=== PATIENT | female | born 1980 | race Caucasian/White ===

== ENCOUNTER 2017-12-22 11:10 | Emergency (ER) | payer OTHER ==
[~2017-12-22] VITALS: Ht 162.6 cm; Wt 99.8 kg
== END 2017-12-22 17:57 | disposition home or self-care (01) ==
LOC: ER 11:10
DX: R20.0 Anesthesia of skin (principal)

== ENCOUNTER 2018-07-14 05:36 | Emergency (ER) | payer OTHER ==
[~2018-07-14] VITALS: Ht 165.1 cm; Wt 97.5 kg
[2018-07-14] MEDS ORDERED: CELECOXIB100 MG PO (10:47)
== END 2018-07-14 11:21 ==
LOC: ER 05:36
DX: R20.2 Paresthesia of skin (principal); R07.89 Other chest pain

== ENCOUNTER 2018-11-16 08:00 | Outpatient (CLI) | payer OTHER ==
[~2018-11-16 08:00] MED LIST: CELECOXIB100 MG PO
== END 2018-11-16 08:11 | disposition home or self-care (01) ==
LOC: RAD 08:00 → SONOGRAMA 08:15 → MAMO-SONO 08:45
DX: R10.0 Acute abdomen (principal); K80.10 Calculus of gallbladder with chronic cholecystitis without obstruction; R07.89 Other chest pain; Z77.22 Contact with and (suspected) exposure to environmental tobacco smoke (acute) (chronic)

== ENCOUNTER 2019-06-12 09:37 | Outpatient (CLI) | payer OTHER | END 2019-06-12 09:47 | disposition home or self-care (01) | LOC: RAD 09:37 | DX: R42 Dizziness and giddiness (principal); R00.2 Palpitations; R30.0 Dysuria; E66.8 Other obesity; Z11.3 Encounter for screening for infections with a predominantly sexual mode of transmission; Z13.220 Encounter for screening for lipoid disorders; E07.89 Other specified disorders of thyroid ==

== ENCOUNTER → 2021-04-28 | Outpatient (CLI) | payer OTHER | END | disposition home or self-care (01) | LOC: MAMO-SONO 10:15 | PROVIDERS: ATTEND General Practice | DX: N64.89 Other specified disorders of breast (principal); Z12.31 Encounter for screening mammogram for malignant neoplasm of breast ==

== ENCOUNTER 2021-05-20 07:58 | Outpatient (CLI) | payer OTHER | END 2021-05-20 08:13 | disposition home or self-care (01) | LOC: MRI 07:58 | PROVIDERS: ATTEND Specialist | DX: E04.1 Nontoxic single thyroid nodule (principal) ==

== ENCOUNTER 2021-05-27 15:10 | Outpatient (CLI) | payer OTHER | END 2021-05-27 15:20 | disposition home or self-care (01) | LOC: RAD 15:10 | PROVIDERS: ATTEND Specialist | DX: M77.11 Lateral epicondylitis, right elbow (principal); M25.521 Pain in right elbow ==

== ENCOUNTER 2022-07-06 10:28 | Emergency (ER) | payer OTHER ==
[~2022-07-06] VITALS: Ht 165.1 cm; Wt 105.2 kg
[~2022-07-06 10:28] MED LIST changes: -DICLOFENAC SODI75 MG PO
[2022-07-07] MEDS ORDERED: DICLOFENAC SODI75 MG PO (18:55)
== END 2022-07-06 18:35 | disposition home or self-care (01) ==
LOC: ER 10:28
DX: N83.202 Unspecified ovarian cyst, left side (principal); N83.291 Other ovarian cyst, right side

== ENCOUNTER → 2022-07-06 | Outpatient (CLI) | payer OTHER ==
[~2022-07-06] MED LIST changes: +DICLOFENAC SODI75 MG PO
== END | disposition home or self-care (01) ==
LOC: SONOGRAMA 08:06
PROVIDERS: ATTEND Specialist
DX: U09.9 Post COVID-19 condition, unspecified (principal); R10.9 Unspecified abdominal pain; L29.0 Pruritus ani; E04.1 Nontoxic single thyroid nodule

== ENCOUNTER 2022-07-07 15:41 | Emergency (ER) | payer OTHER ==
[~2022-07-07] VITALS: Ht 165.1 cm; Wt 105.2 kg
[2022-07-07] MEDS ORDERED: DICLOFENAC SODI75 MG PO (18:55)
== END 2022-07-07 20:20 | disposition home or self-care (01) ==
LOC: ER 15:41
DX: N83.202 Unspecified ovarian cyst, left side (principal); Z20.822 Contact with and (suspected) exposure to COVID-19

== ENCOUNTER 2023-03-25 13:37 | Outpatient (CLI) | payer OTHER ==
[~2023-03-25 13:37] MED LIST changes: +DICLOFENAC SODI75 MG PO
== END 2023-03-25 13:51 | disposition home or self-care (01) ==
LOC: RAD 13:37
PROVIDERS: ATTEND Specialist
DX: R10.9 Unspecified abdominal pain (principal); Z12.31 Encounter for screening mammogram for malignant neoplasm of breast; E78.5 Hyperlipidemia, unspecified; E66.9 Obesity, unspecified; M62.838 Other muscle spasm

== ENCOUNTER 2023-03-30 10:11 | Outpatient (CLI) | payer OTHER | END 2023-03-30 10:36 | disposition home or self-care (01) | LOC: RAD 10:11 | PROVIDERS: ATTEND Specialist | DX: R10.9 Unspecified abdominal pain (principal); Z12.31 Encounter for screening mammogram for malignant neoplasm of breast; E78.5 Hyperlipidemia, unspecified; E66.9 Obesity, unspecified ==

== ENCOUNTER 2023-04-09 13:32 | Emergency (ER) | payer OTHER ==
[~2023-04-09] VITALS: Ht 165.1 cm; Wt 100.7 kg
== END 2023-04-09 14:51 | disposition home or self-care (01) ==
LOC: ER 13:32
DX: R53.81 Other malaise (principal); I10 Essential (primary) hypertension; F41.9 Anxiety disorder, unspecified

== ENCOUNTER 2023-04-12 21:36 | Emergency (ER) | payer OTHER ==
[~2023-04-12] VITALS: Ht 162.6 cm; Wt 100.7 kg
[2023-04-13] MEDS ORDERED: KETO10TA2 PO (05:17)
[2023-04-13] MEDS ORDERED: NORFLEX100MG PO (05:17)
== END 2023-04-13 05:23 ==
LOC: ER 21:36
DX: R51.9 Headache, unspecified (principal); M62.838 Other muscle spasm; R42 Dizziness and giddiness

== ENCOUNTER 2024-03-04 21:57 | Emergency (ER) | payer OTHER ==
[~2024-03-04] VITALS: Ht 165.1 cm; Wt 99.8 kg
[~2024-03-04 21:57] MED LIST changes: +KETO10TA2 PO; +NORFLEX100MG PO
[2024-03-04] MEDS ORDERED: TETANUS & DIPHTHERIA TOX,ADULT 0.5 ML VIAL IM ONE (23:15)
[2024-03-05] MEDS ORDERED: POVIDONE-IODINE 118 ML BOTT TOP ONE (00:20)
[2024-03-05] MEDS ORDERED: KETOROLAC TROMETHAMINE 10 MG TABLET PO STA (01:01)
[2024-03-05] MEDS ORDERED: KETOROLAC TROMETHAMINE 10 MG TABLET PO ONE (01:02)
[2024-03-05] MEDS ORDERED: AMOX-CLAV 875-1 EACH PO (01:04)
[2024-03-05] MEDS ORDERED: KETO10TA2 PO (01:05)
== END 2024-03-05 01:18 ==
LOC: ER
DX: S81.021A Laceration with foreign body, right knee, initial encounter (principal); W18.39XA Other fall on same level, initial encounter; Y93.89 Activity, other specified; Y92.481 Parking lot as the place of occurrence of the external cause

== ENCOUNTER 2024-03-14 18:08 | Emergency (ER) | payer OTHER ==
[~2024-03-14] VITALS: Ht 160 cm; Wt 99.8 kg
[~2024-03-14 18:08] MED LIST changes: +AMOX-CLAV 875-1 EACH PO
== END 2024-03-14 19:48 | disposition home or self-care (01) ==
LOC: ER 18:09
DX: Z48.02 Encounter for removal of sutures (principal)

== ENCOUNTER 2024-07-17 08:27 | Outpatient (CLI) | payer OTHER | END 2024-07-17 08:38 | disposition home or self-care (01) | LOC: SONOGRAMA 08:27 | PROVIDERS: ATTEND General Practice | DX: R10.9 Unspecified abdominal pain (principal); E66.9 Obesity, unspecified; E11.8 Type 2 diabetes mellitus with unspecified complications; R30.0 Dysuria ==

== ENCOUNTER 2024-11-16 07:22 | Outpatient (CLI) | payer OTHER | END 2024-11-16 07:32 | disposition home or self-care (01) | LOC: TOM 07:22 | PROVIDERS: ATTEND Specialist | DX: E04.1 Nontoxic single thyroid nodule (principal); R10.9 Unspecified abdominal pain ==

== ENCOUNTER 2024-11-27 13:44 | Outpatient (CLI) | payer OTHER | END 2024-11-27 13:47 | disposition home or self-care (01) | LOC: MAMO-SONO 13:44 | PROVIDERS: ATTEND Specialist | DX: Z12.31 Encounter for screening mammogram for malignant neoplasm of breast (principal) ==